=== PATIENT | female | born 1985 | race Two or more races ===

== ENCOUNTER 2023-04-06 20:34 | Emergency (ER) | payer MEDICAID, OTHER ==
[~2023-04-06] VITALS: Ht 167.6 cm; Wt 111.0 kg
[2023-04-06 20:55] VITALS: BP 130/84; PULSE 96; RESP 20; O2SAT 100
[2023-04-06 21:48] LABS: Basophils # (auto) 0.1 10 ^3/uL (0-0.2); Basophils % (auto) 0.9 % (0.0-2.0); Eosinophils # (auto) 0.2 10 ^3/uL (0-0.8); Eosinophils % (auto) 2.2 % (0.0-7.0); Hematocrit 33.2 % (36.0-46.0); Hemoglobin 10.8 g/dL (12.2-16.2); Lymphocytes # (auto) 1.7 10 ^3/uL (0.4-5.4); Lymphocytes % (auto) 21.6 % (10.0-50.0); Mean Corpuscular Hemoglobin 30.8 pg (28.0-32.0); Mean Corpuscular Hgb Conc. 32.4 g/dL (32.0-36.0); Monocytes % (auto) 12.7 % (0.0-12.0); Neutrophils % (auto) 62.6 % (37.0-80.0); Nucleated Red Blood Cells % 0.1 %; Red Cell Distribution Width 15.3 % (11.8-14.3)
[2023-04-06 22:12] LABS: Alanine Aminotransferase 40 U/L (7-40); Albumin 4.3 g/dL (3.2-4.8); Alkaline Phosphatase 238 U/L (46-116); Anion Gap 10 (5-15); Aspartate Aminotransferase 21 U/L (13-40); Bilirubin, Total 0.7 mg/dL (0.2-1.0); Blood Urea Nitrogen 38 mg/dL (9-23); Calcium 9.6 mg/dL (8.7-10.4); Carbon Dioxide 26 mmol/L (20-30); Chloride 101 mmol/L (98-107); Glucose 87 mg/dL (74-106); Sodium 137 mmol/L (136-145); Total Protein 7.7 g/dL (5.7-8.2)
[2023-04-07] MEDS ORDERED: ALBUTEROL SULF 2.5 MG/0.5ML(0.5%) NEB SOLN NEB ONE (01:30)
[2023-04-07] MEDS ORDERED: DEXTROSE (50%) 50ML SYRG IV ONE (01:30)
[2023-04-07] MEDS ORDERED: SODIUM ZIRCONIUM CYCL 10 GM PAK PO ONE (01:30)
[2023-04-07] MEDS ORDERED: InsuLIN REG 1unit/0.01ml Soln (100units/ml) IV ONE (01:30)
[2023-04-07] MEDS ORDERED: ALBUTEROL SULF 2.5 MG/0.5ML(0.5%) NEB SOLN ONE (01:33)
== END 2023-04-07 02:26 | disposition left against medical advice (07) ==
LOC: ER 20:34 → EDBD 20:34 → ER 04-07 02:26
DX: Z49.01 Encounter for fitting and adjustment of extracorporeal dialysis catheter (principal); R07.89 Other chest pain; Z53.21 Procedure and treatment not carried out due to patient leaving prior to being seen by health care provider
CPT/HCPCS: 36415; 80053; 85025; 93005

== ENCOUNTER 2023-04-10 15:32 | Inpatient (IN) | payer MEDICAID ==
[~2023-04-10] VITALS: Ht 170.2 cm; Wt 116.5 kg
[2023-04-10] MEDS ORDERED: HYDROcodone-ACET 10/325MG TAB PO ONE (16:15)
[2023-04-10 16:44] LABS: Basophils # (auto) 0.1 10 ^3/uL (0-0.2); Basophils % (auto) 0.6 % (0.0-2.0); Eosinophils # (auto) 0 10 ^3/uL (0-0.8); Eosinophils % (auto) 0.2 % (0.0-7.0); Hematocrit 31.3 % (36.0-46.0); Lymphocytes # (auto) 0.9 10 ^3/uL (0.4-5.4); Lymphocytes % (auto) 10.6 % (10.0-50.0); Mean Corpuscular Hemoglobin 30.7 pg (28.0-32.0); Mean Corpuscular Volume 96.1 fL (80.0-100.0); Monocytes # (auto) 0.6 10 ^3/uL (0-1.3); Monocytes % (auto) 7.3 % (0.0-12.0); Neutrophils # (auto) 7.1 10 ^3/uL (1.6-8.6); Neutrophils % (auto) 81.3 % (37.0-80.0); Nucleated Red Blood Cells % 0.2 %; Red Blood Cells 3.25 10^6/uL (4.0-5.20); White Blood Cell 8.7 10^3/uL (4.4-10.8)
[2023-04-10 17:05] LABS: Anion Gap 18 (5-15); Carbon Dioxide 17 mmol/L (20-30); Chloride 101 mmol/L (98-107); Sodium 136 mmol/L (136-145)
[2023-04-10 17:11] LABS: BUN/Creatinine Ratio 5.4 (10.0-20.0); Blood Urea Nitrogen 76 mg/dL (9-23); Glucose 104 mg/dL (74-106)
[2023-04-10 18:34] LABS: Potassium 7.3 mmol/L (3.5-5.1)
[2023-04-10 18:40] VITALS: PULSE 152; RESP 36; O2SAT 95
[2023-04-10] MEDS ORDERED: ALBUTEROL SULF 2.5 MG/0.5ML(0.5%) NEB SOLN HHN ONE (18:45)
[2023-04-10] MEDS ORDERED: DEXTROSE (50%) 50ML SYRG IV ONE ×2 (18:45→23:45)
[2023-04-10] MEDS ORDERED: InsuLIN REG 1unit/0.01ml Soln (100units/ml) IV ONE ×2 (18:45→23:45)
[2023-04-10] MEDS ORDERED: CALCIUM GLUC 1,000mg/50ml-NS 50 ML IV ONE ×2 (18:45→23:45)
[2023-04-10] MEDS ORDERED: SODIUM BICARBONATE 8.4 % INJ 50ML VIAL IV ONE (18:45)
[2023-04-10] MEDS ORDERED: LABETALOL HCL 5 MG/ML 4ML SYRINGE IV ONE (19:15)
[2023-04-10 19:30] VITALS: PULSE 152; RESP 18; O2SAT 100
[2023-04-10] MEDS ORDERED: DEXTROSE (50%) 50ML SYRG IV PRN (20:00)
[2023-04-10] MEDS ORDERED: ONDANSETRON HCL 4 MG/2 ML VIAL IV PRN (20:00)
[2023-04-10] MEDS ORDERED: ACETAMINOPHEN 325 MG TAB PO PRN (20:00)
[2023-04-10] MEDS ORDERED: hydrALAZINE HCL 20 MG/ML VL IV PRN (20:00)
[2023-04-10] MEDS ORDERED: MORPHINE SULFATE INJ 2 MG/ml SYRG IV PRN (20:00)
[2023-04-10] MEDS ORDERED: MAALOX PLUS or MAALOX 30 ML PO PRN (20:00)
[2023-04-10] MEDS ORDERED: DOCUSATE SOD 100 MG CAP PO PRN (20:00)
[2023-04-10] MEDS ORDERED: InsuLIN REG 1unit/0.01ml Soln (100units/ml) SC SCH (22:00)
[2023-04-10] MEDS: ACCU-CHEK COMFORT CURVE STRIP VI SCH (22:15)
[2023-04-10] MEDS ORDERED: FUROSEMIDE 40 MG/4 ML VIAL IV ONE (23:45)
[2023-04-10] MEDS ORDERED: SODIUM BICARBONATE 8.4% INJ 50ML SYRINGE IV ONE (23:45)
[2023-04-10] MEDS ORDERED: SODIUM ZIRCONIUM CYCL 10 GM PAK PO ONE (23:45)
[2023-04-10] MEDS ORDERED: ALBUTEROL SULF 2.5 MG/0.5ML(0.5%) NEB SOLN NEB ONE (23:45)
[2023-04-11] MEDS: ACCU-CHEK COMFORT CURVE STRIP VI SCH (06:49)
[2023-04-11] MEDS ORDERED: InsuLIN REG 1unit/0.01ml Soln (100units/ml) SC SCH (07:00)
[2023-04-11 07:57] VITALS: PULSE 100; RESP 16; O2SAT 95
[2023-04-11 08:02] LABS: Basophils # (auto) 0 10 ^3/uL (0-0.2); Basophils % (auto) 0.3 % (0.0-2.0); Eosinophils # (auto) 0 10 ^3/uL (0-0.8); Eosinophils % (auto) 0.2 % (0.0-7.0); Hematocrit 27.4 % (36.0-46.0); Hemoglobin 9.2 g/dL (12.2-16.2); Lymphocytes # (auto) 1.4 10 ^3/uL (0.4-5.4); Lymphocytes % (auto) 15.7 % (10.0-50.0); Mean Corpuscular Hemoglobin 31.9 pg (28.0-32.0); Mean Corpuscular Hgb Conc. 33.4 g/dL (32.0-36.0); Mean Corpuscular Volume 95.5 fL (80.0-100.0); Monocytes # (auto) 0.8 10 ^3/uL (0-1.3); Monocytes % (auto) 8.5 % (0.0-12.0); Neutrophils # (auto) 6.7 10 ^3/uL (1.6-8.6); Neutrophils % (auto) 75.3 % (37.0-80.0); Red Blood Cells 2.87 10^6/uL (4.0-5.20); Red Cell Distribution Width 15.8 % (11.8-14.3)
[2023-04-11 08:22] LABS: Chloride 101 mmol/L (98-107); Sodium 138 mmol/L (136-145)
[2023-04-11 08:23] LABS: Anion Gap 17 (5-15); Calcium 9.6 mg/dL (8.5-10.1); Carbon Dioxide 20 mmol/L (20-30)
[2023-04-11 08:28] LABS: BUN/Creatinine Ratio 6.1 (10.0-20.0); Glucose 66 mg/dL (74-106)
[2023-04-11 08:34] LABS: Blood Urea Nitrogen 92 mg/dL (9-23); Potassium 7.7 mmol/L (3.5-5.1)
[2023-04-11] MEDS ORDERED: DOXYCYCLINE 100MG/250ML 250 ML IV SCH (08:45)
[2023-04-11] MEDS ORDERED: cefTRIAXone 1GM/50ML D5W 50 ML IV SCH (09:00)
[2023-04-11] MEDS ORDERED: DEXTROSE (50%) 50ML SYRG IV ONE ×3 (09:15→16:30)
[2023-04-11] MEDS ORDERED: SODIUM ZIRCONIUM CYCL 10 GM PAK PO ONE ×3 (09:15→16:30)
[2023-04-11] MEDS ORDERED: SODIUM BICARBONATE 8.4% INJ 50ML SYRINGE IV ONE ×3 (09:15→15:00)
[2023-04-11] MEDS ORDERED: InsuLIN REG 1unit/0.01ml Soln (100units/ml) IV ONE ×3 (09:15→16:30)
[2023-04-11] MEDS ORDERED: CALCIUM GLUC 1,000mg/50ml-NS 50 ML IV ONE ×3 (09:15→16:30)
[2023-04-11 09:25] LABS: INR 1.15 (0.9-1.15); Partial Thromboplastin Time 28.5 SEC (24.5-34.5)
[2023-04-11] MEDS: FUROSEMIDE 20 MG/2 ML VIAL IV ONE ×2 (10:24→10:31)
[2023-04-11 13:04] LABS: Anion Gap 16 (5-15); Carbon Dioxide 23 mmol/L (20-30); Chloride 100 mmol/L (98-107); Sodium 139 mmol/L (136-145)
[2023-04-11 13:10] LABS: BUN/Creatinine Ratio 5.6 (10.0-20.0); Glucose 69 mg/dL (74-106); Potassium 6.9 mmol/L (3.5-5.1)
[2023-04-11 13:22] LABS: Blood Urea Nitrogen 89 mg/dL (9-23)
[2023-04-11 13:28] LABS: Hepatitis B Surface Antigen Negative (Negative)
[2023-04-11 13:49] LABS: Hepatitis C Antibody Negative (Negative)
[2023-04-11 13:54] LABS: Amphetamine Screen, Urine Neg (NEGATIVE); Barbiturate Scree,Urine Neg (NEGATIVE); Benzodiazephine Screen, Urine Neg (NEGATIVE); Cocaine Screen, Urine Neg (NEGATIVE); Opiate Scree,Urine Neg (NEGATIVE); Phencyclidine Screen, Urine Neg (NEGATIVE)
[2023-04-11 13:55] LABS: Cannabinoid Screen, Urine Neg (NEGATIVE)
[2023-04-11] MEDS ORDERED: FUROSEMIDE 20 MG/2 ML VIAL IV ONE (15:00)
[2023-04-11] MEDS ORDERED: ALBUTEROL SULF 2.5 MG/0.5ML(0.5%) NEB SOLN NEB ONE (16:30)
[2023-04-11] MEDS ORDERED: FUROSEMIDE 40 MG/4 ML VIAL IV ONE (16:30)
[2023-04-11 20:00] VITALS: PULSE 101; RESP 20; O2SAT 94
[2023-04-11] MEDS ORDERED: CHOLECALCIFEROL (VITD3) 1,000UNIT=25mCg TAB PO ONE (20:00)
[2023-04-11] MEDS ORDERED: amLODIPine BESYLATE 5 MG TAB PO ONE (20:00)
[2023-04-11 20:56] LABS: % Iron Saturation 52.1 % (15-50)
[2023-04-11 21:02] LABS: Ferritin > 1650.0 ng/mL (10-291); Folate (Folic Acid) 16.45 ng/mL (>5.38)
[2023-04-11] MEDS: SODIUM ZIRCONIUM CYCL 10 GM PAK PO SCH (22:00)
[2023-04-12] VITALS (16 sets, daily range): BP systolic 109–151; BP diastolic 62–89; PULSE 66–102; RESP 12–22; TEMP 97.6–98.5; O2SAT 90–100
[2023-04-12 05:53] LABS: Basophils # (auto) 0.1 10 ^3/uL (0-0.2); Basophils % (auto) 0.7 % (0.0-2.0); Eosinophils # (auto) 0.1 10 ^3/uL (0-0.8); Eosinophils % (auto) 0.8 % (0.0-7.0); Hematocrit 26.7 % (36.0-46.0); Hemoglobin 8.8 g/dL (12.2-16.2); Lymphocytes # (auto) 1.3 10 ^3/uL (0.4-5.4); Lymphocytes % (auto) 15.2 % (10.0-50.0); Mean Corpuscular Hgb Conc. 32.8 g/dL (32.0-36.0); Mean Corpuscular Volume 94.7 fL (80.0-100.0); Monocytes # (auto) 0.8 10 ^3/uL (0-1.3); Monocytes % (auto) 9.6 % (0.0-12.0); Neutrophils # (auto) 6.1 10 ^3/uL (1.6-8.6); Neutrophils % (auto) 73.7 % (37.0-80.0); Nucleated Red Blood Cells % 0.5 %; Red Blood Cells 2.82 10^6/uL (4.0-5.20); Red Cell Distribution Width 15.8 % (11.8-14.3); White Blood Cell 8.3 10^3/uL (4.4-10.8)
[2023-04-12] MEDS: SODIUM ZIRCONIUM CYCL 10 GM PAK PO SCH ×3 (06:00→22:00)
[2023-04-12 06:14] LABS: Alanine Aminotransferase 200 U/L (7-40); Albumin 4.3 g/dL (3.2-4.8); Alkaline Phosphatase 225 U/L (46-116); Anion Gap 21 (5-15); Aspartate Aminotransferase 95 U/L (13-40); BUN/Creatinine Ratio 6.3 (10.0-20.0); Calcium 9.8 mg/dL (8.5-10.1); Carbon Dioxide 21 mmol/L (20-30); Chloride 96 mmol/L (98-107); Cholesterol 140 mg/dL (< 200); Glucose 103 mg/dL (74-106); HDL Cholesterol 42 mg/dL (40-59); LDL Cholesterol 76 mg/dL (< 100); Sodium 138 mmol/L (136-145); Triglycerides 84 mg/dL (< 150)
[2023-04-12 06:15] LABS: Bilirubin, Total 0.7 mg/dL (0.2-1.0); Total Protein 7.5 g/dL (5.7-8.2)
[2023-04-12 06:46] LABS: Blood Urea Nitrogen 103 mg/dL (9-23); Potassium 6.3 mmol/L (3.5-5.1)
[2023-04-12] MEDS ORDERED: SODIUM CHL 0.9% 1000 ML BAG XX ONE (07:00)
[2023-04-12 07:17] LABS: Magnesium 2.9 mg/dL (1.6-2.6)
[2023-04-12] MEDS ORDERED: SODIUM ZIRCONIUM CYCL 10 GM PAK PO ONE (08:30)
[2023-04-12] MEDS ORDERED: CALCIUM GLUC 1,000mg/50ml-NS 50 ML IV ONE (08:30)
[2023-04-12] MEDS ORDERED: InsuLIN REG 1unit/0.01ml Soln (100units/ml) IV ONE (08:30)
[2023-04-12] MEDS ORDERED: FUROSEMIDE 40 MG/4 ML VIAL IV ONE (08:30)
[2023-04-12] MEDS ORDERED: DEXTROSE (50%) 50ML SYRG IV ONE (08:30)
[2023-04-12] MEDS ORDERED: ALBUTEROL SULF 2.5 MG/0.5ML(0.5%) NEB SOLN ONE (08:30)
[2023-04-12] MEDS ORDERED: ALBUTEROL SULF 2.5 MG/0.5ML(0.5%) NEB SOLN NEB ONE (08:30)
[2023-04-12 09:06] LABS: INR 1.14 (0.9-1.15); Partial Thromboplastin Time 29.3 SEC (24.5-34.5); Prothrombin Time 11.9 sec (9.3-11.8)
[2023-04-12] MEDS ORDERED: amLODIPine BESYLATE 5 MG TAB PO SCH (10:00)
[2023-04-12] MEDS: FUROSEMIDE 40 MG/4 ML VIAL IV SCH (10:00)
[2023-04-12] MEDS ORDERED: LIDOCAINE 2%HCL (LOCAL ANESTH.) INJ 20ML MDV ONE (11:57)
[2023-04-12] MEDS ORDERED: MIDAZOLAM HCL 2MG/2ML 2ml VIAL (1mg/ml) ONE (12:02)
[2023-04-12] MEDS ORDERED: fentaNYL CITRATE 100 MCG/2 ML VL ONE (12:02)
[2023-04-12] MEDS ORDERED: ceFAZolin 1GM/50ML 50 ML IV ONE (12:10)
[2023-04-12] MEDS ORDERED: HEPARIN SODIUM (PORCINE) 5000 UNITS/ML 1ML VIAL ONE (12:26)
[2023-04-12] MEDS: CHOLECALCIFEROL (VITD3) 1,000UNIT=25mCg TAB PO SCH (14:00)
[2023-04-12] MEDS ORDERED: HALOPERIDOL LACTATE 5 MG/ML INJ VIAL IM PRN ×2 (15:30→20:15)
[2023-04-12] MEDS ORDERED: LORazepam 2MG/ML-1ML VIAL IV PRN (15:30)
[2023-04-12] MEDS: SEVELAMER 800 MG TAB PO SCH (18:00)
[2023-04-12] MEDS ORDERED: EPOETIN ALFA-EPBX 10,000 UNIT/1ML VIAL SC ONE (21:00)
[2023-04-12 21:21] LABS: COVID19 ANTIGEN SOFIA FIA NEGATIVE (NEGATIVE)
[2023-04-12 21:56] LABS: Alanine Aminotransferase 184 U/L (7-40); Albumin 3.8 g/dL (3.2-4.8); Alkaline Phosphatase 204 U/L (46-116); Anion Gap 15 (5-15); Aspartate Aminotransferase 62 U/L (13-40); BUN/Creatinine Ratio 5.7 (10.0-20.0); Bilirubin, Total 0.7 mg/dL (0.2-1.0); Calcium 9.6 mg/dL (8.7-10.4); Carbon Dioxide 25 mmol/L (20-30); Chloride 101 mmol/L (98-107); Glucose 65 mg/dL (74-106); Magnesium 2.5 mg/dL (1.6-2.6); Potassium 4.7 mmol/L (3.5-5.1); Sodium 141 mmol/L (136-145); Total Protein 6.6 g/dL (5.7-8.2)
[2023-04-12 22:08] LABS: Blood Urea Nitrogen 63 mg/dL (9-23)
[2023-04-12] MEDS: QUEtiapine FUMARATE 25 MG TAB PO SCH (22:11)
[2023-04-13] VITALS (9 sets, daily range): BP systolic 144; BP diastolic 83; PULSE 87–99; RESP 13–21; TEMP 98.6; O2SAT 92–100
[2023-04-13 04:50] LABS: Basophils # (auto) 0.1 10 ^3/uL (0-0.2); Hematocrit 24.3 % (36.0-46.0); Red Blood Cells 2.53 10^6/uL (4.0-5.20)
[2023-04-13 04:52] LABS: Eosinophils # (auto) 0.1 10 ^3/uL (0-0.8); Eosinophils % (auto) 2.5 % (0.0-7.0); Hemoglobin 8.1 g/dL (12.2-16.2); Lymphocytes % (auto) 17.8 % (10.0-50.0); Mean Corpuscular Hemoglobin 32.1 pg (28.0-32.0); Mean Corpuscular Hgb Conc. 33.5 g/dL (32.0-36.0); Monocytes # (auto) 0.7 10 ^3/uL (0-1.3); Monocytes % (auto) 12.3 % (0.0-12.0); Neutrophils # (auto) 3.7 10 ^3/uL (1.6-8.6); Neutrophils % (auto) 66.4 % (37.0-80.0); Nucleated Red Blood Cells % 0.2 %; Red Cell Distribution Width 16.2 % (11.8-14.3); White Blood Cell 5.5 10^3/uL (4.4-10.8)
[2023-04-13 05:07] LABS: Alanine Aminotransferase 201 U/L (7-40); Albumin 3.6 g/dL (3.2-4.8); Alkaline Phosphatase 201 U/L (46-116); Anion Gap 12 (5-15); Aspartate Aminotransferase 74 U/L (13-40); BUN/Creatinine Ratio 6.2 (10.0-20.0); Calcium 9.8 mg/dL (8.5-10.1); Carbon Dioxide 26 mmol/L (20-30); Chloride 103 mmol/L (98-107); Glucose 76 mg/dL (74-106); Sodium 141 mmol/L (136-145)
[2023-04-13 05:08] LABS: Bilirubin, Total 0.8 mg/dL (0.2-1.0); Total Protein 6.1 g/dL (5.7-8.2)
[2023-04-13 05:09] LABS: Blood Urea Nitrogen 76 mg/dL (9-23)
[2023-04-13] MEDS: SODIUM ZIRCONIUM CYCL 10 GM PAK PO SCH (05:35)
[2023-04-13] MEDS ORDERED: hydrALAZINE HCL 20 MG/ML VL IV PRN (07:30)
[2023-04-13] MEDS ORDERED: CALCIUM GLUC 1,000mg/50ml-NS 50 ML IV ONE (07:30)
[2023-04-13] MEDS ORDERED: FUROSEMIDE 20 MG/2 ML VIAL IV ONE (07:30)
[2023-04-13] MEDS ORDERED: ALBU108A5 INH (07:55)
[2023-04-13] MEDS ORDERED: APIX2.5T PO (07:55)
[2023-04-13] MEDS ORDERED: ARIP10TA29 PO (07:55)
[2023-04-13] MEDS ORDERED: SEVE800T10 PO (07:55)
[2023-04-13] MEDS ORDERED: FURO40TA4 PO (07:55)
[2023-04-13] MEDS ORDERED: GAB100C PO (07:55)
[2023-04-13] MEDS ORDERED: SENN-105 PO (07:55)
[2023-04-13] MEDS ORDERED: SUCR5CHW PO (07:55)
[2023-04-13] MEDS: SEVELAMER 800 MG TAB PO SCH ×2 (08:00→12:00)
[2023-04-13] MEDS: QUEtiapine FUMARATE 25 MG TAB PO SCH (09:56)
[2023-04-13] MEDS: CHOLECALCIFEROL (VITD3) 1,000UNIT=25mCg TAB PO SCH (10:00)
[2023-04-13] MEDS ORDERED: amLODIPine BESYLATE 5 MG TAB PO SCH (10:00)
[2023-04-13] MEDS: FUROSEMIDE 40 MG/4 ML VIAL IV SCH (10:00)
[2023-04-13] MEDS ORDERED: SODIUM CHL 0.9% 1000 ML BAG XX ONE (11:00)
[2023-04-13] MEDS ORDERED: SODIUM ZIRCONIUM CYCL 10 GM PAK PO ONE (11:00)
[2023-04-13 12:53] LABS: Magnesium 2.6 mg/dL (1.6-2.6)
[2023-04-13 14:45] LABS: INR 1.13 (0.9-1.15); Partial Thromboplastin Time 27.2 SEC (24.5-34.5); Prothrombin Time 11.8 sec (9.3-11.8)
[2023-04-13] MEDS ORDERED: EPOETIN ALFA-EPBX 10,000 UNIT/1ML VIAL SC ONE (21:00)
[2023-04-14 08:10] LABS: Hepatitis B Surface Antibody Negative (Negative)
[2023-04-14 08:18] LABS: Hepatitis B Surface Antigen Negative (Negative)
[2023-04-14 08:22] LABS: Hepatitis B Surface Antigen Negative (Negative)
[2023-04-14 08:39] LABS: Hepatitis A Ab IgM Negative
[2023-04-14 08:40] LABS: Hepatitis B Core IgM Negative; Hepatitis C Antibody Negative (Negative)
[2023-04-14] MEDS ORDERED: B-COMPLEX W/ C & FOLIC ACID(NEPHROVITE TAB) PO SCH (10:00)
== END 2023-04-13 16:35 | disposition left against medical advice (07) | DRG 466 ==
LOC: ER 15:32 → EDBD 15:32 → TELE 20:19 → DOU IN ICU 04-12 13:45
PROVIDERS: ADMIT Internal Medicine; ATTEND Emergency Medicine
PROC: 5A1D70Z Performance of Urinary Filtration, Intermittent, Less than 6 Hours Per Day (ICD-10-PCS; principal; 2023-04-12)
PROC: 0JH63XZ Insertion of Tunneled Vascular Access Device into Chest Subcutaneous Tissue and Fascia, Percutaneous Approach (ICD-10-PCS; 2023-04-12)
PROC: 02H633Z Insertion of Infusion Device into Right Atrium, Percutaneous Approach (ICD-10-PCS; 2023-04-12)
PROC: B548ZZA Ultrasonography of Superior Vena Cava, Guidance (ICD-10-PCS; 2023-04-12)
PROC: B518ZZA Fluoroscopy of Superior Vena Cava, Guidance (ICD-10-PCS; 2023-04-12)
PROC: 5A1D70Z Performance of Urinary Filtration, Intermittent, Less than 6 Hours Per Day (ICD-10-PCS; 2023-04-13)
DX: T82.42XA Displacement of vascular dialysis catheter, initial encounter (principal); I12.0 Hypertensive chronic kidney disease with stage 5 chronic kidney disease or end stage renal disease; J18.9 Pneumonia, unspecified organism; J90 Pleural effusion, not elsewhere classified; N18.6 End stage renal disease; D63.1 Anemia in chronic kidney disease; E87.8 Other disorders of electrolyte and fluid balance, not elsewhere classified; G89.4 Chronic pain syndrome; K57.90 Diverticulosis of intestine, part unspecified, without perforation or abscess without bleeding; E55.9 Vitamin D deficiency, unspecified; K80.20 Calculus of gallbladder without cholecystitis without obstruction; F41.9 Anxiety disorder, unspecified; F20.9 Schizophrenia, unspecified; F31.9 Bipolar disorder, unspecified; K42.9 Umbilical hernia without obstruction or gangrene; R16.0 Hepatomegaly, not elsewhere classified; R59.0 Localized enlarged lymph nodes; Z20.822 Contact with and (suspected) exposure to COVID-19; E21.1 Secondary hyperparathyroidism, not elsewhere classified; E66.9 Obesity, unspecified; E11.22 Type 2 diabetes mellitus with diabetic chronic kidney disease; Y83.8 Other surgical procedures as the cause of abnormal reaction of the patient, or of later complication, without mention of misadventure at the time of the procedure; E87.5 Hyperkalemia; Z91.199 Patient's noncompliance with other medical treatment and regimen due to unspecified reason; Y92.89 Other specified places as the place of occurrence of the external cause; Z68.41 Body mass index [BMI] 40.0-44.9, adult
CPT/HCPCS: 36415; 36558; 70450; 71045; 71250; 72125; 74176; 76937; 77001; 80048; 80053; 80061; 80074; 80307; 82140; 82306; 82550; 82607; 82728; 82746; 82962; 83036; 83540; 83550; 83690; 83735; 83880; 83970; 84100; 84132; 84443; 84702; 85025; 85610; 85730; 86706; 86803; 87040; 87081; 87340; 87426; 90935; 93005; 94640; 96365; 96375; 99152; 99291; G0378; J1815; J2250; J2405; J3490

== ENCOUNTER 2023-05-09 15:33 | Emergency (ER) | payer MEDICAID ==
[~2023-05-09] VITALS: Ht 170.2 cm; Wt 84.0 kg
[~2023-05-09 15:33] MED LIST: ALBU108A5 INH; APIX2.5T PO; ARIP10TA29 PO; FURO40TA4 PO; GAB100C PO; SENN-105 PO; SEVE800T10 PO; SUCR5CHW PO
[2023-05-09 15:39] VITALS: BP 129/87; PULSE 115; RESP 24; O2SAT 94
[2023-05-09] MEDS: ACETAMINOPHEN 325 MG TAB PO ONE (15:49)
== END 2023-05-09 18:37 | disposition left against medical advice (07) ==
LOC: ER 15:33 → EDBD 15:33 → ER 18:37
DX: R05.9 Cough, unspecified (principal); R50.9 Fever, unspecified; R51.9 Headache, unspecified; Z53.21 Procedure and treatment not carried out due to patient leaving prior to being seen by health care provider

== ENCOUNTER 2023-05-10 05:29 | Inpatient (IN) | payer MEDICAID ==
[~2023-05-10] VITALS: Ht 170.2 cm; Wt 114.7 kg
[2023-05-10 07:37] LABS: Basophils # (auto) 0.1 10 ^3/uL (0-0.2); Basophils % (auto) 1.2 % (0.0-2.0); Eosinophils # (auto) 0 10 ^3/uL (0-0.8); Hematocrit 29.8 % (36.0-46.0); Hemoglobin 9.9 g/dL (12.2-16.2); Lymphocytes # (auto) 0.6 10 ^3/uL (0.4-5.4); Lymphocytes % (auto) 10.3 % (10.0-50.0); Mean Corpuscular Hemoglobin 31.8 pg (28.0-32.0); Mean Corpuscular Hgb Conc. 33.1 g/dL (32.0-36.0); Mean Corpuscular Volume 95.9 fL (80.0-100.0); Monocytes # (auto) 0.8 10 ^3/uL (0-1.3); Monocytes % (auto) 13.4 % (0.0-12.0); Neutrophils # (auto) 4.3 10 ^3/uL (1.6-8.6); Neutrophils % (auto) 75.1 % (37.0-80.0); Nucleated Red Blood Cells % 0.1 %; Red Cell Distribution Width 16.2 % (11.8-14.3); White Blood Cell 5.7 10^3/uL (4.4-10.8)
[2023-05-10 07:53] LABS: Alanine Aminotransferase 21 U/L (7-40); Albumin 4.3 g/dL (3.2-4.8); Alkaline Phosphatase 192 U/L (46-116); Anion Gap 14 (5-15); Aspartate Aminotransferase 20 U/L (13-40); Bilirubin, Total 0.9 mg/dL (0.2-1.0); Blood Urea Nitrogen 70 mg/dL (9-23); Calcium 10.1 mg/dL (8.5-10.1); Carbon Dioxide 23 mmol/L (20-30); Chloride 92 mmol/L (98-107); Glucose 91 mg/dL (74-106); Sodium 129 mmol/L (136-145); Total Protein 7.6 g/dL (5.7-8.2)
[2023-05-10 07:54] LABS: INR 1.1 (0.9-1.15); Partial Thromboplastin Time 31.4 SEC (24.5-34.5); Prothrombin Time 11.5 sec (9.3-11.8)
[2023-05-10 08:06] LABS: Potassium 6.2 mmol/L (3.5-5.1)
[2023-05-10] MEDS: SODIUM ZIRCONIUM CYCL 10 GM PAK PO ONE (09:20)
[2023-05-10] MEDS: SODIUM BICARB 8.4% 50Meq/50ml SYR INJ IV ONE (09:21)
[2023-05-10] MEDS: DEXTROSE (50%) 50ML SYRG IV ONE ×2 (09:21→11:27)
[2023-05-10] MEDS: FUROSEMIDE 20 MG/2 ML VIAL IV ONE (09:22)
[2023-05-10] MEDS: ALBUTEROL SULF 2.5 MG/0.5ML(0.5%) NEB SOLN NEB ONE ×2 (10:40→14:07)
[2023-05-10] MEDS: CALCIUM GLUC 1,000mg/50ml-NS 50 ML IV ONE (11:28)
[2023-05-10] MEDS: InsuLIN REG 1unit/0.01ml Soln (100units/ml) IV ONE (11:28)
[2023-05-10] MEDS ORDERED: ONDANSETRON HCL 4 MG/2 ML VIAL IV PRN (11:45)
[2023-05-10] MEDS ORDERED: DOCUSATE SOD 100 MG CAP PO PRN (11:45)
[2023-05-10 12:22] LABS: Potassium 4.5 mmol/L (3.5-5.1)
[2023-05-10 12:30] LABS: Magnesium 2.3 mg/dL (1.6-2.6)
[2023-05-10 12:31] LABS: Phosphorus 10.9 mg/dL (2.4-5.1)
[2023-05-10] MEDS: IPRATROPIUM BROM 0.5 MG/2.5ML INH SOL NEB ONE (14:07)
[2023-05-10] MEDS: HYDROcodone-ACET 5/325MG TAB PO ONE (15:24)
[2023-05-10 16:22] LABS: COVID19 ANTIGEN SOFIA FIA NEGATIVE (NEGATIVE)
[2023-05-10 16:23] LABS: Rapid Influenza B Negative (Negative)
[2023-05-10 16:24] LABS: Rapid Influenza A Positive (Negative)
[2023-05-10] MEDS ORDERED: SODIUM CHL 0.9% 1000 ML BAG XX ONE (17:15)
[2023-05-10] MEDS: OSELTAMIVIR 30 MG CAP PO SCH (18:20)
[2023-05-10 20:01] VITALS: PULSE 84; RESP 14; O2SAT 97
[2023-05-10] MEDS: EPOETIN ALFA-EPBX 10,000 UNIT/1ML VIAL SC ONE (21:00)
[2023-05-10 22:40] VITALS: BP 125/85; PULSE 96; RESP 20; TEMP 98.5; O2SAT 95
[2023-05-10] MEDS: MORPHINE SULFATE INJ 2 MG/ml SYRG IV PRN (22:57)
[2023-05-11] VITALS (7 sets, daily range): BP systolic 101–147; BP diastolic 54–90; PULSE 80–108; RESP 18–22; TEMP 98–98.6; O2SAT 91–100
[2023-05-11 06:41] LABS: Basophils # (auto) 0.1 10 ^3/uL (0-0.2); Basophils % (auto) 0.8 % (0.0-2.0); Eosinophils # (auto) 0 10 ^3/uL (0-0.8); Eosinophils % (auto) 0.3 % (0.0-7.0); Hematocrit 27.3 % (36.0-46.0); Lymphocytes # (auto) 0.9 10 ^3/uL (0.4-5.4); Lymphocytes % (auto) 12.7 % (10.0-50.0); Mean Corpuscular Hgb Conc. 33.1 g/dL (32.0-36.0); Mean Corpuscular Volume 96.8 fL (80.0-100.0); Monocytes # (auto) 0.8 10 ^3/uL (0-1.3); Neutrophils # (auto) 5.4 10 ^3/uL (1.6-8.6); Neutrophils % (auto) 75.2 % (37.0-80.0); Red Blood Cells 2.82 10^6/uL (4.0-5.20); Red Cell Distribution Width 16.5 % (11.8-14.3); White Blood Cell 7.2 10^3/uL (4.4-10.8)
[2023-05-11 06:58] LABS: Alanine Aminotransferase 42 U/L (7-40); Albumin 3.9 g/dL (3.2-4.8); Alkaline Phosphatase 182 U/L (46-116); Anion Gap 17 (5-15); Aspartate Aminotransferase 29 U/L (13-40); BUN/Creatinine Ratio 7.6 (10.0-20.0); Bilirubin, Total 0.6 mg/dL (0.2-1.0); Calcium 9.8 mg/dL (8.5-10.1); Carbon Dioxide 23 mmol/L (20-30); Chloride 92 mmol/L (98-107); Glucose 90 mg/dL (74-106); Sodium 132 mmol/L (136-145); Total Protein 6.8 g/dL (5.7-8.2)
[2023-05-11] MEDS ORDERED: SODIUM CHL 0.9% 1000 ML BAG XX ONE (07:00)
[2023-05-11 07:16] LABS: Blood Urea Nitrogen 103 mg/dL (9-23); Potassium 6.3 mmol/L (3.5-5.1)
[2023-05-11] MEDS ORDERED: CALCIUM GLUC 1,000mg/50ml-NS 50 ML IV ONE (07:45)
[2023-05-11] MEDS ORDERED: InsuLIN REG 1unit/0.01ml Soln (100units/ml) IV ONE (07:45)
[2023-05-11] MEDS ORDERED: DEXTROSE (50%) 50ML SYRG IV ONE (07:45)
[2023-05-11] MEDS ORDERED: SODIUM BICARB 8.4% 50Meq/50ml SYR INJ IV ONE (07:45)
[2023-05-11] MEDS ORDERED: SODIUM ZIRCONIUM CYCL 10 GM PAK PO ONE (07:45)
[2023-05-11] MEDS: ENOXAPARIN SOD 30 MG/0.3 ML SYRINGE SC SCH (10:00)
[2023-05-11] MEDS: EPOETIN ALFA-EPBX 10,000 UNIT/1ML VIAL SC ONE (21:05)
[2023-05-12 05:00] VITALS: BP 115/74; PULSE 83; RESP 22; TEMP 97.9; O2SAT 98
[2023-05-12 07:14] LABS: Basophils # (auto) 0 10 ^3/uL (0-0.2); Basophils % (auto) 0.9 % (0.0-2.0); Eosinophils # (auto) 0 10 ^3/uL (0-0.8); Eosinophils % (auto) 0.8 % (0.0-7.0); Hematocrit 27.6 % (36.0-46.0); Hemoglobin 9.2 g/dL (12.2-16.2); Lymphocytes # (auto) 0.9 10 ^3/uL (0.4-5.4); Lymphocytes % (auto) 20.1 % (10.0-50.0); Mean Corpuscular Hemoglobin 32.2 pg (28.0-32.0); Mean Corpuscular Hgb Conc. 33.3 g/dL (32.0-36.0); Mean Corpuscular Volume 96.6 fL (80.0-100.0); Monocytes # (auto) 0.7 10 ^3/uL (0-1.3); Monocytes % (auto) 15.4 % (0.0-12.0); Neutrophils # (auto) 2.9 10 ^3/uL (1.6-8.6); Neutrophils % (auto) 62.8 % (37.0-80.0); Nucleated Red Blood Cells % 0.1 %; Red Blood Cells 2.86 10^6/uL (4.0-5.20); Red Cell Distribution Width 16.4 % (11.8-14.3); White Blood Cell 4.6 10^3/uL (4.4-10.8)
[2023-05-12 07:28] LABS: Alanine Aminotransferase 37 U/L (7-40); Alkaline Phosphatase 164 U/L (46-116); Anion Gap 12 (5-15); Calcium 9.6 mg/dL (8.5-10.1); Carbon Dioxide 27 mmol/L (20-30); Chloride 95 mmol/L (98-107); Glucose 79 mg/dL (74-106); Potassium 5.1 mmol/L (3.5-5.1); Sodium 134 mmol/L (136-145)
[2023-05-12 07:29] LABS: Aspartate Aminotransferase 22 U/L (13-40); BUN/Creatinine Ratio 5.1 (10.0-20.0)
[2023-05-12 07:30] LABS: Albumin 3.8 g/dL (3.2-4.8)
[2023-05-12 07:31] LABS: Bilirubin, Total 0.7 mg/dL (0.2-1.0); Total Protein 6.8 g/dL (5.7-8.2)
[2023-05-12 07:47] LABS: Blood Urea Nitrogen 53 mg/dL (9-23)
[2023-05-12] MEDS ORDERED: guaiFENesin-DM 100/10mg/5ml SYR PO PRN (09:45)
[2023-05-12 10:15] VITALS: PULSE 83; RESP 20; O2SAT 97
[2023-05-12] MEDS: ALBUTEROL SULF 2.5 MG/0.5ML(0.5%) NEB SOLN NEB PRN (10:15)
[2023-05-12] MEDS: IPRATROPIUM BROM 0.5 MG/2.5ML INH SOL NEB PRN (10:15)
[2023-05-12 10:25] VITALS: PULSE 78; RESP 20; O2SAT 100
[2023-05-12 11:48] VITALS: BP 110/71; PULSE 78; RESP 20; TEMP 97.9; O2SAT 97
[2023-05-12] MEDS: LIDOCAINE 2%HCL (LOCAL ANESTH.) INJ 20ML MDV ONE (16:16)
[2023-05-12] MEDS: MIDAZOLAM HCL 2MG/2ML 2ml VIAL (1mg/ml) ONE (16:16)
[2023-05-12] MEDS: fentaNYL CITRATE 100 MCG/2 ML VL ONE (16:16)
[2023-05-12 17:02] VITALS: BP 146/87; PULSE 92; RESP 18; TEMP 98.1; O2SAT 94
[2023-05-12] MEDS: HEPARIN SODIUM (PORCINE) 5000 UNITS/ML 1ML VIAL ONE (17:26)
[2023-05-12] MEDS: ceFAZolin 1GM/50ML 50 ML IV ONE (17:26)
[2023-05-12 20:00] VITALS: PULSE 95; O2SAT 97
[2023-05-12] MEDS: SEVELAMER 800 MG TAB PO SCH (20:14)
[2023-05-13] VITALS (10 sets, daily range): BP systolic 126–135; BP diastolic 72–90; PULSE 78–96; RESP 18–21; TEMP 36.7; O2SAT 95–98
[2023-05-13] MEDS ORDERED: SODIUM CHL 0.9% 1000 ML BAG XX ONE (07:00)
[2023-05-13] MEDS ORDERED: ALBUAER3 IN (12:35)
[2023-05-13] MEDS ORDERED: OSELTAMIVIR 30 MG CAP PO SCH (18:00)
[2023-05-13] MEDS ORDERED: EPOETIN ALFA-EPBX 10,000 UNIT/1ML VIAL SC ONE (21:00)
== END 2023-05-13 15:30 | disposition home or self-care (01) | DRG 466 ==
LOC: ER 05:29 → EDBD 05:29 → TELE 11:40 → TELE-CENTR 22:30
PROVIDERS: ADMIT Internal Medicine Pulmonary Disease; ATTEND Internal Medicine Pulmonary Disease
PROC: 5A1D70Z Performance of Urinary Filtration, Intermittent, Less than 6 Hours Per Day (ICD-10-PCS; 2023-05-10)
PROC: 0JH63XZ Insertion of Tunneled Vascular Access Device into Chest Subcutaneous Tissue and Fascia, Percutaneous Approach (ICD-10-PCS; principal; 2023-05-12)
PROC: 06H033Z Insertion of Infusion Device into Inferior Vena Cava, Percutaneous Approach (ICD-10-PCS; 2023-05-12)
PROC: 02H633Z Insertion of Infusion Device into Right Atrium, Percutaneous Approach (ICD-10-PCS; 2023-05-12)
PROC: 5A1D70Z Performance of Urinary Filtration, Intermittent, Less than 6 Hours Per Day (ICD-10-PCS; 2023-05-12)
PROC: B518YZA Fluoroscopy of Superior Vena Cava using Other Contrast, Guidance (ICD-10-PCS; 2023-05-12)
DX: T82.42XA Displacement of vascular dialysis catheter, initial encounter (principal); I12.0 Hypertensive chronic kidney disease with stage 5 chronic kidney disease or end stage renal disease; J96.01 Acute respiratory failure with hypoxia; F25.9 Schizoaffective disorder, unspecified; D63.1 Anemia in chronic kidney disease; N18.6 End stage renal disease; J10.1 Influenza due to other identified influenza virus with other respiratory manifestations; J81.1 Chronic pulmonary edema; Z99.2 Dependence on renal dialysis; F31.9 Bipolar disorder, unspecified; E87.5 Hyperkalemia; N25.81 Secondary hyperparathyroidism of renal origin; Z20.822 Contact with and (suspected) exposure to COVID-19; K80.20 Calculus of gallbladder without cholecystitis without obstruction; X58.XXXA Exposure to other specified factors, initial encounter; E66.9 Obesity, unspecified; Z68.29 Body mass index [BMI] 29.0-29.9, adult; E87.70 Fluid overload, unspecified; Z88.0 Allergy status to penicillin
CPT/HCPCS: 36415; 36558; 71045; 77001; 80053; 82962; 83735; 84100; 84132; 84702; 85025; 85610; 85730; 87040; 87081; 87426; 87804; 90935; 94640; 96374; 96375; 99152; 99291; G0378; G9035; J1642; J1815; J2250

== ENCOUNTER 2023-05-20 23:35 | Emergency (ER) | payer MEDICAID ==
[~2023-05-20] VITALS: Ht 170.2 cm; Wt 110.0 kg
[~2023-05-20 23:35] MED LIST changes: +ALBUAER3 IN
[2023-05-20 23:40] VITALS: BP 138/78; PULSE 88; RESP 18; O2SAT 96
[2023-05-21 01:11] LABS: Basophils # (auto) 0.1 10 ^3/uL (0-0.2); Basophils % (auto) 0.9 % (0.0-2.0); Eosinophils # (auto) 0.3 10 ^3/uL (0-0.8); Eosinophils % (auto) 3.5 % (0.0-7.0); Hematocrit 33.9 % (36.0-46.0); Mean Corpuscular Hgb Conc. 32.4 g/dL (32.0-36.0); Mean Corpuscular Volume 95.8 fL (80.0-100.0); Monocytes # (auto) 1.2 10 ^3/uL (0-1.3); Monocytes % (auto) 12.8 % (0.0-12.0); Neutrophils # (auto) 5.9 10 ^3/uL (1.6-8.6); Neutrophils % (auto) 61.8 % (37.0-80.0); Nucleated Red Blood Cells % 0.1 %; Red Blood Cells 3.53 10^6/uL (4.0-5.20); Red Cell Distribution Width 16.9 % (11.8-14.3); White Blood Cell 9.5 10^3/uL (4.4-10.8)
[2023-05-21 01:30] LABS: Alanine Aminotransferase 18 U/L (7-40); Albumin 4.1 g/dL (3.2-4.8); Alkaline Phosphatase 198 U/L (46-116); Anion Gap 13 (5-15); Aspartate Aminotransferase 17 U/L (13-40); BUN/Creatinine Ratio 5.5 (10.0-20.0); Blood Urea Nitrogen 46 mg/dL (9-23); Calcium 9.6 mg/dL (8.7-10.4); Carbon Dioxide 26 mmol/L (20-30); Chloride 98 mmol/L (98-107); Glucose 84 mg/dL (74-106); Potassium 5.5 mmol/L (3.5-5.1); Sodium 137 mmol/L (136-145)
[2023-05-21 01:31] LABS: Bilirubin, Total 0.6 mg/dL (0.2-1.0); Total Protein 7.6 g/dL (5.7-8.2)
== END 2023-05-21 01:11 | disposition left against medical advice (07) ==
LOC: ER 23:35 → EDBD 23:35 → ER 05-21 01:11
DX: M79.10 Myalgia, unspecified site (principal); I12.0 Hypertensive chronic kidney disease with stage 5 chronic kidney disease or end stage renal disease; N18.6 End stage renal disease; Z88.0 Allergy status to penicillin; Z53.29 Procedure and treatment not carried out because of patient's decision for other reasons
CPT/HCPCS: 36415; 80053; 85025